=== PATIENT | female | born 1985 | race Caucasian/White ===

== ENCOUNTER → 2016-08-16 | Outpatient (CLI) | payer OTHER | LOC: COL.RAD 10:17 | DX: R10.12 Left upper quadrant pain (principal); G89.29 Other chronic pain ==

== ENCOUNTER → 2017-05-15 | Outpatient (CLI) | payer BC | LOC: COL.RAD 09:03 | DX: R10.31 Right lower quadrant pain (principal); R11.2 Nausea with vomiting, unspecified; R19.7 Diarrhea, unspecified; R23.2 Flushing | CPT/HCPCS: A9572 ==

== ENCOUNTER → 2017-12-13 | Outpatient (CLI) | payer BC | LOC: COL.RAD 08:04 | DX: E05.90 Thyrotoxicosis, unspecified without thyrotoxic crisis or storm (principal) ==

== ENCOUNTER → 2017-12-26 | Outpatient (CLI) | payer BC | LOC: COL.RAD 12-25 09:12 | DX: E05.90 Thyrotoxicosis, unspecified without thyrotoxic crisis or storm (principal) | CPT/HCPCS: A9516 ==

== ENCOUNTER → 2018-07-16 | Outpatient (CLI) | payer BC | LOC: COL.RAD 13:29 | DX: E05.90 Thyrotoxicosis, unspecified without thyrotoxic crisis or storm (principal) | CPT/HCPCS: A9516 ==

== ENCOUNTER → 2018-07-26 | Outpatient (CLI) | payer BC | LOC: COL.RAD 13:08 | DX: E05.90 Thyrotoxicosis, unspecified without thyrotoxic crisis or storm (principal) | CPT/HCPCS: A9517 ==

== ENCOUNTER → 2019-01-06 | Outpatient (CLI) | payer OTHER ==
[~2019-01-06] MED LIST: ADVIL200 MG PO; BENADRYL25 M2 PO; EPIPEN 2-PAK1 MG/ML IM; PREDNISONE 5MG5 MG PO; PROAIR HFA0.09 MG/AC IH; SANDOSTATI100 MCG/ML SQ; SANDOSTATIN LAR30 M1 IM; SYNTHROID0.1 MG/TAB PO; ZANTAC 7575 MG PO
== END ==
LOC: COL.PUL 07:49
DX: Z02.71 Encounter for disability determination (principal)

== ENCOUNTER 2019-03-04 13:30 | Outpatient (RCR) | payer OTHER ==
[2018-12-16 13:55] VITALS: BP 114/70; PULSE 78; TEMP 98.5
[2019-01-07 13:39] VITALS: BP 102/70; PULSE 83; TEMP 98.1
--- NOTE | 2019-01-07 16:09 | NUR ---
Pt rekha xolair well. Pt observed for 2 hours post injection. Pt discharged per ambulation with .
[2019-01-16 13:13] VITALS: BP 119/87; PULSE 77; TEMP 97.9
[2019-02-04 16:38] VITALS: BP 120/68; PULSE 66; TEMP 98
[2019-02-18 14:08] VITALS: BP 109/75; PULSE 87; TEMP 98
[~2019-03-04] VITALS: Ht 167.6 cm; Wt 72.5 kg
[2019-03-04 13:43] VITALS: BP 116/61; PULSE 83; TEMP 98.4
[2019-04-15] MEDS ORDERED: XOLAIR150 MG/1 M SQ (14:16)
== END 2019-03-16 | disposition home or self-care (01) ==
LOC: EUO
DX: D89.42 Idiopathic mast cell activation syndrome (principal); E34.0 Carcinoid syndrome; J45.40 Moderate persistent asthma, uncomplicated; R76.8 Other specified abnormal immunological findings in serum; Z79.899 Other long term (current) drug therapy

== ENCOUNTER 2019-06-10 13:00 | Outpatient (RCR) | payer OTHER ==
[2019-03-18 14:10] VITALS: BP 101/71; PULSE 78; TEMP 98.3
[2019-04-01 13:54] VITALS: BP 115/72; PULSE 74; TEMP 98.3
[2019-04-15 14:17] VITALS: BP 108/73; PULSE 76; TEMP 98
[2019-04-29 11:11] VITALS: BP 115/70; PULSE 85; TEMP 98.3
[2019-05-14 14:34] VITALS: BP 11/77; PULSE 72; TEMP 98.7
[2019-05-27 14:27] VITALS: BP 105/71; PULSE 76; TEMP 98
[2019-06-03 12:30] VITALS: BP 103/68; PULSE 72; TEMP 98.3
[2019-06-03 13:45] VITALS: BP 99/53; PULSE 77; TEMP 98.2
[2019-06-03 15:09] VITALS: BP 99/54; PULSE 73
[~2019-06-10] VITALS: Ht 170.2 cm; Wt 68.4 kg
[~2019-06-10 13:00] MED LIST changes: +XOLAIR150 MG/1 M SQ
[2019-06-10 14:35] VITALS: BP 111/86; PULSE 73; TEMP 98.6
[2019-06-10] MEDS ORDERED: PROMETHAZINE12.5 M5 PO (16:29)
== END 2019-06-16 | disposition still patient (30) ==
LOC: EUO
DX: E34.0 Carcinoid syndrome (principal); D89.42 Idiopathic mast cell activation syndrome; J45.40 Moderate persistent asthma, uncomplicated; R76.8 Other specified abnormal immunological findings in serum; Z79.899 Other long term (current) drug therapy
CPT/HCPCS: J2357; J7030

== ENCOUNTER → 2019-06-17 | Outpatient (CLI) | payer OTHER ==
[~2019-06-17] MED LIST changes: +PROMETHAZINE12.5 M5 PO
== END ==
LOC: COL.RAD 08:03
DX: K80.20 Calculus of gallbladder without cholecystitis without obstruction (principal); R11.15 Cyclical vomiting syndrome unrelated to migraine; N28.9 Disorder of kidney and ureter, unspecified

== ENCOUNTER 2019-06-30 12:06 | Day surgery (SDC) | payer OTHER ==
[2019-06-30] VITALS (9 sets, daily range): BP systolic 102–113; BP diastolic 54–80; PULSE 77–101; TEMP 98.1–98.3
[~2019-06-30] VITALS: Ht 170.2 cm; Wt 68.3 kg
--- NOTE | 2019-06-30 13:14 | NUR ---
TO RM AT 1225- CALL IN REACH AND MOTHER AT BEDSIDE.
--- NOTE | 2019-06-30 13:51 | NUR ---
PATIENT MOTHER CAME OUT AND STATED SHE WAS HAVING A REACTION. CHEEKS PINK AND STARTED RASH, VOICE SCRATCHY. THEY ASK IF SHE COULD TAKE ONE OF HER OWN OCTREOTIDE INJ 100MCG. OMAIRA MURRAY CALLED, OK TO GIVE HER OWN INJ. AND TO GIVE BENADRYL 25MG IV. THESE MEDICATIONS GIVEN AND PATIENT STATED SHE WAS FEELING BETTER AND VOICE MORE CLEAR. AMBULATED TO BATHROOM WITH ASSIST AND TOLERATED WELL.
--- NOTE | 2019-06-30 14:04 | NUR ---
MOTHER VERBALIZED CONCERN OF HAVING SURGERY AND REACTIOINS SHE HAS TO THE ENVIRONMENT. DR CRESPO TALKED WITH PATIENT AND HER FAMILY. OMAIRA MURRAY TALKED WITH PATIENT AND HER FAMILY. PRACTICE PERFORMANCE MANAGER CALLED AND UPDATED ON PATIENT MAST CELL ACTIVATION SYNDROME CARCINOID SYNDROME.
--- NOTE | 2019-06-30 16:40 | NUR ---
PATIENT IS ORIENTED BUT VERY DROWSY POST OP. 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 NURSING DISCUSSED THESE RARE SYNDROMES WITH MOTHER AND AT BEDSIDE. PATIENT'S FAMILY REPORTS SHE WAS DIAGNOSED WITH MAST CELL SYNDROME IN 2013 AND CARCINOID SYNDROME IN 2016. PATIENT REPORTIDLY HAS ANYWHERE FROM 5-6 SERIOUS ALLERGIC REACTIONS DAILY. THERE IS A WIDE RANGE OF CAUSATIVE FACTORS SUCH FOODS, SMELLS, AND OTHER ENVIRONMENTAL THINGS. HOSPITALIST CONSULTED FOR MANAGMENT OF THESE CONDITIONS HOWEVER, PATIENT HAS BEEN MANAGING HER SYMPTOMS ALONG WITH HER FAMILY FOR YEARS. ABDOMINAL LAP SITES X4, CD&I WITH LU SET. ABDOMIN IS FLAT, SOFT AND WITH POSITIVE BOWL SOUNDS. NO C/O N/V AT THIS TIME. IV FLUIDS INFUSING INTO LEFT WRIST. ICE CHIPS AT BEDSIDE. FAMILY BRINGING IN FILTERED WATER FOR HER. HEAD TO TOE ASSESSMENT WNL. NO OTHER NEEDS AT THIS TIME. CALL LIGHT IN REACH. FAMILY ALL AT BEDSIDE. PATIENT SLEEPING
--- NOTE | 2019-06-30 17:45 | NUR ---
PATIENT C/O PAIN IN ABD LAP SITES BUT ALSO IN HER RIGHT POSTERIOR BACK. GAVE PRN ROXICODONE, ONE TAB. PATIENT ALSO GIVEN K-PAD FOR BACK TO HELP RELIEVE BACK MUSCLE PAIN. FAMILY AT BEDSIDE. PATIENT ENCOURAGED TO LET NURSING STAFF KNOW IF SHE NEEDS A MEDICATION FOR ALLERGIC REACTION DUE TO HER HX OF MAST CELL ACTIVATION SYNDROME. PATIENT AND FAMILY VERY WELL EDUCATED ABOUT REACTIONS AND WHAT TO DO. NO CONCERNS AT THIS TIME. PATIENT RESTING IN BED.
--- NOTE | 2019-06-30 18:15 | NUR ---
HOSPITALIST PHYSICIAN NOW AT BEDSIDE.
--- NOTE | 2019-06-30 18:58 | NUR ---
PATIENT'S MOTHER CAME OUT OF ROOM AND ASKED FOR NURSING. PATIENT REPORTS SHE IS HAVING A REACTION. GAVE PRN INJ. AFTER 5 MINUTES PATIENT STILL REPORTS FEELING FLUSH AND LUMP IN HER THROAT. GAVE PRN BENADRYL AND PREDNISONE. COOL CLOTH APPLIED TO HEAD. PATIENT REPORTS THIS IS HER NORMAL TREATMENT METHOD AT HOME. HOSPITALIST AT BEDSIDE. PATIENT REPORTS SYMPTOMS ARE IMPROVING. FAMILY AT BEDSIDE.
[2019-07-01] VITALS: BP 103/63; PULSE 72; TEMP 98.1
--- NOTE | 2019-07-01 00:43 | NUR ---
Upon arrival for my shift, patient was having a reaction per day shift as charted in previous note. Patient settled after medication was given. Patient alerted staff that she would most likely have a reaction after eating and her was bringing her some food from home. Patient called about 2114 and stated she was having a reaction. Upon entering the room patient noted to be flushed in the face, slightly puffy in her cheeks, and her lips slightly swollen. Medication including octreotide, benadryl, and prednisone were given. Cool wash cloth to forehead. This nurse stayed with patient until the reaction appeared to subside. Assisted patient to the restroom with 1 assist. Complains of pain to right side and back. Motrin given for this and patient states this is effective. Patient states her primary care physician ordered epinepherine for severe allergic reactions, when no other medication has helped because this can cause the opposite effect in her body and send her body into a worse reaction. Medication not given. IV Solumedrol 40mg q8 hours ordered by Dr. Becerril for if 2 doses of prednisone isn't effective. Patient and family notified of this and do not want this given unless an absolute emergency d/t never taking it before. Patient's brought in an air purifier. Patient has been resting with no reactions since 2109. Will continue to monitor patient.
[2019-07-01 03:52] VITALS: BP 86/54; PULSE 65; TEMP 97.8
--- NOTE | 2019-07-01 04:12 | NUR ---
Patient blood pressure noted to be 86/[address] Michael notified and ordered 1L NS bolus over 1 hour and to monitor blood pressure. Will continue to monitor patient.
[2019-07-01 05:12] VITALS: BP 95/57; PULSE 64
[2019-07-01 07:19] VITALS: BP 89/48; PULSE 69; TEMP 98.2
--- NOTE | 2019-07-01 08:00 | NUR ---
SEE MORNING SHIFT ASSESSMENT.
--- NOTE | 2019-07-01 08:58 | NUR ---
EFFIE met with the patient, her (Дмитрий, ph#[phone]), and mother (Marleny, ph#[phone]) to discuss discharge plan. The patient lives in [place] with her . She reports needing assistance with ADLs and does not have any DME. She states that her helps her with bathing and using the restroom. The patient's PCP is Dr. Malachi Moss and she receives her medications at [facility]. She reports no difficulties obtaining her meds. The patient does not have advanced directives in EMR, but she states that she does have them completed. She states that her mother, Marleny, is her DPOA-HC. The patient plans to return home with her upon discharge. No additional needs at this time.
[2019-07-01 09:05] LABS: BASO % 0.1 % (0.0-2.0); GRAN # 5.8 (1.4-6.5); GRAN % 76.9 % (42.2-75.2); HEMOGLOBIN 10.4 g/dl (12.5-16.0); LYMPH # 1.2 (1.2-3.4); LYMPH % 15.9 % (20.0-51.0); MEAN CELL VOLUME 91 fl (80.0-100.0); MEAN CORPUSCULAR HEMOGLOBIN 31 pg (27.0-31.0); MEAN CORPUSCULAR HGB CONC 34 g/dl (33.0-37.0); MEAN PLATELET VOLUME 11.5 fl (7.4-10.4); MONO # 0.5 (0.1-0.6); PLATELET COUNT 165 K/mm3 (130-400); RED BLOOD COUNT 3.39 M/mm3 (4.10-5.30); REDCELL DISTRIBUTION WIDTH-CV 11.7 % (11.5-14.5)
--- NOTE | 2019-07-01 09:12 | NUR ---
PATIENT COMPLAINS ON LIP SWELLING, NASAL PRESSURE AND AN INCREASE IN THE RASPINESS OF HER VOICE AFTER RECEIVING OCTREOTIDE. PATIENT REQUESTED AND GIVEN PRN PO BENADRYL 50 MG. NO OTHER NEEDS AT THIS TIME.
--- NOTE | 2019-07-01 09:26 | NUR ---
PATIENT CALLED OUT STATING THAT SHE DOES NOT FEEL THAT THE BENADRYL IS QUITE WORKING. PATIENT GIVEN PRN DOSE OF PREDNISONE. WILL CONTINUE TO MONITOR.
[2019-07-01 09:49] LABS: ALBUMIN 3.2 gm/dL (3.5-5.0); BILIRUBIN,TOTAL 0.7 mg/dL (0.0-1.0); CALCIUM 8.2 mg/dL (8.4-10.2); CREATININE, serum 0.7 (0.52-1.25); POTASSIUM 3.9 mmol/L (3.4-5.0)
[2019-07-01 10:37] VITALS: BP 102/75; PULSE 66; TEMP 97.3
--- NOTE | 2019-07-01 12:54 | NUR ---
PATIENT CALLED OUT AND REQUESTED SQ INJECTION FOR THROAT RASPINESS AFTER EATING PEACHES. WILL CONTINUE TO [facility]. NO OTHER NEEDS AT THIS TIME.
--- NOTE | 2019-07-01 14:45 | NUR ---
DISCHARGE INSTRUCTIONS REVIEWED WITH PATIENT AND FAMILY. QUESTIONS SOUGHT AND ANSWERED. PATIENTS INT DISCONTINUED PER PENDING DISCHARGE. TIP INTACT. PATIENT TOLERATED WELL. PATIENT PERSONAL BELONGINGS GATHERED. PATIENT TAKEN TO PERSONAL VEHICLE VIA WHEELCHAIR BY SURGICAL STAFF. PATIENT DISCHARGED.
== END 2019-07-01 14:45 | disposition home or self-care (01) ==
LOC: SURG 12:06 → SDCO 12:06 → SURG 17:00 → SDCO 07-01 14:45
PROVIDERS: Physician Assistant
DX: K80.10 Calculus of gallbladder with chronic cholecystitis without obstruction (principal); D89.40 Mast cell activation, unspecified; E34.0 Carcinoid syndrome; E05.00 Thyrotoxicosis with diffuse goiter without thyrotoxic crisis or storm; J45.909 Unspecified asthma, uncomplicated; G43.909 Migraine, unspecified, not intractable, without status migrainosus; E03.9 Hypothyroidism, unspecified; Z79.52 Long term (current) use of systemic steroids; Z88.2 Allergy status to sulfonamides; Z80.49 Family history of malignant neoplasm of other genital organs
CPT/HCPCS: OP; 99222; 99231-AI; J0690; J1200; J1720; J2354; J2405; J2550; J2704; J3010; J7030; J7040; J7120; J7512

== ENCOUNTER 2019-08-05 14:00 | Outpatient (RCR) | payer OTHER ==
[2019-07-08 14:00] VITALS: BP 110/83; PULSE 105; TEMP 97.7
[~2019-08-05] VITALS: Ht 170.2 cm; Wt 66.5 kg
[2019-08-05 15:13] VITALS: BP 116/74; PULSE 66; TEMP 97.7
== END 2019-08-05 15:15 | disposition home or self-care (01) ==
LOC: EUO 14:00
DX: E34.0 Carcinoid syndrome (principal); D89.42 Idiopathic mast cell activation syndrome; J45.40 Moderate persistent asthma, uncomplicated; R76.8 Other specified abnormal immunological findings in serum; Z79.899 Other long term (current) drug therapy

== ENCOUNTER 2020-09-14 15:05 | Outpatient (CLI) | payer MEDICARE, OTHER ==
[~2020-09-14] VITALS: Ht 170.2 cm; Wt 69.2 kg
[~2020-09-14 15:05] MED LIST changes: +CROLOM 10 ML10 ML PO; +SYNTHROID0.088 MG/T PO; -SYNTHROID0.1 MG/TAB PO
[2020-09-14 15:55] VITALS: BP 115/74; PULSE 71; TEMP 98.1
[2020-09-14] MEDS ORDERED: XOLAIR150 MG/1 M SQ (16:13)
== END 2020-09-14 16:14 | disposition home or self-care (01) ==
LOC: EUO 15:05
DX: E34.0 Carcinoid syndrome (principal); D89.42 Idiopathic mast cell activation syndrome; J45.40 Moderate persistent asthma, uncomplicated; Z79.899 Other long term (current) drug therapy
CPT/HCPCS: J2353

== ENCOUNTER 2020-09-28 14:52 | Outpatient (CLI) | payer MEDICARE, OTHER ==
[~2020-09-28] VITALS: Ht 170.2 cm; Wt 68.9 kg
[2020-09-28 15:14] VITALS: BP 107/90; PULSE 84; TEMP 98.1
== END 2020-09-28 15:52 | disposition home or self-care (01) ==
LOC: EUO 14:52
DX: J45.40 Moderate persistent asthma, uncomplicated (principal); Z79.899 Other long term (current) drug therapy
CPT/HCPCS: J2357

== ENCOUNTER 2020-10-12 14:50 | Outpatient (RCR) | payer MEDICARE, OTHER ==
[2020-10-12 15:55] VITALS: BP 105/74; PULSE 72; TEMP 98.2
== END 2020-10-12 16:13 | disposition home or self-care (01) ==
LOC: EUO 14:50
DX: J45.40 Moderate persistent asthma, uncomplicated (principal); E34.0 Carcinoid syndrome; D89.42 Idiopathic mast cell activation syndrome
CPT/HCPCS: J2353

== ENCOUNTER 2020-10-26 14:45 | Outpatient (CLI) | payer MEDICARE, OTHER ==
[~2020-10-26] VITALS: Ht 170.2 cm; Wt 70.0 kg
[2020-10-26 15:27] VITALS: BP 126/83; PULSE 77; TEMP 98
== END 2020-10-26 16:04 | disposition home or self-care (01) ==
LOC: EUO 14:45
DX: J45.40 Moderate persistent asthma, uncomplicated (principal); Z79.899 Other long term (current) drug therapy
CPT/HCPCS: J2357

== ENCOUNTER 2020-11-09 14:52 | Outpatient (RCR) | payer MEDICARE, OTHER ==
[~2020-11-09] VITALS: Ht 170.2 cm; Wt 69.0 kg
[2020-11-09 16:04] VITALS: BP 140/71; PULSE 81; TEMP 98.7
== END 2020-11-10 17:23 | disposition home or self-care (01) ==
LOC: EUO 14:52
DX: D89.42 Idiopathic mast cell activation syndrome (principal); E34.0 Carcinoid syndrome
CPT/HCPCS: J2353

== ENCOUNTER 2020-11-23 14:42 | Outpatient (CLI) | payer MEDICARE, OTHER ==
[~2020-11-23] VITALS: Ht 170.2 cm; Wt 69.0 kg
[2020-11-23 15:18] VITALS: BP 112/79; PULSE 75; TEMP 98.2
== END 2020-11-23 15:30 | disposition home or self-care (01) ==
LOC: EUO 14:42
DX: J45.40 Moderate persistent asthma, uncomplicated (principal); Z79.899 Other long term (current) drug therapy
CPT/HCPCS: J2357

== ENCOUNTER 2020-12-02 18:34 | Emergency (ER) | payer MEDICARE, OTHER ==
[~2020-12-02] VITALS: Ht 170.2 cm; Wt 68.2 kg
[2020-12-02 19:29] LABS: BASO % 0.5 % (0.0-2.0); EOS # 0.1 (0.0-0.7); EOS % 0.8 % (0-4.0); GRAN # 3.9 (1.4-6.5); GRAN % 53.3 % (42.2-75.2); HEMOGLOBIN 12.5 g/dl (12.5-16.0); LYMPH # 2.8 (1.2-3.4); LYMPH % 37.5 % (20.0-51.0); MEAN CELL VOLUME 88 fl (80.0-100.0); MEAN CORPUSCULAR HEMOGLOBIN 30 pg (27.0-31.0); MEAN CORPUSCULAR HGB CONC 34 g/dl (33.0-37.0); MEAN PLATELET VOLUME 11.5 fl (7.4-10.4); MONO # 0.6 (0.1-0.6); MONO % 7.8 % (1.7-9.3); PLATELET COUNT 228 K/mm3 (130-400); RED BLOOD COUNT 4.21 M/mm3 (4.10-5.30); REDCELL DISTRIBUTION WIDTH-CV 11.8 % (11.5-14.5)
[2020-12-02 19:40] LABS: CALCIUM 9.4 mg/dL (8.4-10.2); CREATININE, serum 0.75 (0.52-1.25); POTASSIUM 3.3 mmol/L (3.4-5.0)
[2020-12-02 20:40] VITALS: BP 114/71; PULSE 84; TEMP 97.9
== END 2020-12-02 20:40 | disposition home or self-care (01) ==
LOC: COL.ER 18:34
PROVIDERS: Physician Assistant
DX: D89.40 Mast cell activation, unspecified (principal); E03.9 Hypothyroidism, unspecified; Z79.890 Hormone replacement therapy; Z85.030 Personal history of malignant carcinoid tumor of large intestine
CPT/HCPCS: J2930; J7030

== ENCOUNTER 2020-12-07 14:57 | Outpatient (CLI) | payer MEDICARE, OTHER ==
[~2020-12-07] VITALS: Ht 170.2 cm; Wt 69.8 kg
[2020-12-07 16:21] VITALS: BP 125/84; PULSE 72; TEMP 98.9
== END 2020-12-07 16:24 | disposition home or self-care (01) ==
LOC: EUO 14:57 → EDSTATUS 15:00 → EUO 16:24
DX: E34.0 Carcinoid syndrome (principal); D89.42 Idiopathic mast cell activation syndrome; Z79.899 Other long term (current) drug therapy
CPT/HCPCS: J2353

== ENCOUNTER 2020-12-21 14:52 | Outpatient (CLI) | payer MEDICARE, OTHER ==
[~2020-12-21] VITALS: Ht 170.2 cm; Wt 69.3 kg
[2020-12-21 15:16] VITALS: BP 106/69; PULSE 80; TEMP 98.7
[2020-12-21] MEDS ORDERED: METHOTREXA2.5 MG/TAB PO (15:29)
== END 2020-12-22 12:00 ==
LOC: EUO 14:52
DX: J45.40 Moderate persistent asthma, uncomplicated (principal)
CPT/HCPCS: J2357

== ENCOUNTER 2021-01-04 15:46 | Outpatient (CLI) | payer MEDICARE, OTHER ==
[~2021-01-04] VITALS: Ht 170.2 cm; Wt 69.7 kg
[2021-01-04 15:20] VITALS: BP 11/70; PULSE 90; TEMP 97.9
[~2021-01-04 15:46] MED LIST changes: +METHOTREXA2.5 MG/TAB PO
== END 2021-01-04 17:03 | disposition home or self-care (01) ==
LOC: EUO 15:46
DX: E34.0 Carcinoid syndrome (principal); D89.42 Idiopathic mast cell activation syndrome; Z79.899 Other long term (current) drug therapy
CPT/HCPCS: J2353

== ENCOUNTER 2021-01-18 14:56 | Outpatient (CLI) | payer MEDICARE, OTHER ==
[~2021-01-18] VITALS: Ht 170.2 cm; Wt 70.1 kg
[2021-01-18 15:36] VITALS: BP 106/70; PULSE 73; TEMP 98.6
== END 2021-01-18 19:02 | disposition home or self-care (01) ==
LOC: EUO 14:56
DX: J45.40 Moderate persistent asthma, uncomplicated (principal)
CPT/HCPCS: J2357

== ENCOUNTER 2021-02-01 14:51 | Outpatient (RCR) | payer MEDICARE, OTHER ==
[~2021-02-01] VITALS: Ht 170.2 cm; Wt 71.7 kg
[2021-02-01 15:30] VITALS: BP 100/67; PULSE 89; TEMP 97.9
== END 2021-03-01 15:14 | disposition home or self-care (01) ==
LOC: EUO 14:51
DX: E34.0 Carcinoid syndrome (principal); D89.42 Idiopathic mast cell activation syndrome; Z79.899 Other long term (current) drug therapy
CPT/HCPCS: J2353

== ENCOUNTER 2021-02-15 14:43 | Outpatient (CLI) | payer MEDICARE, OTHER ==
[~2021-02-15] VITALS: Ht 170.2 cm; Wt 71.9 kg
[2021-02-15 15:01] VITALS: BP 108/75; PULSE 71; TEMP 98.6
== END 2021-02-15 16:17 | disposition home or self-care (01) ==
LOC: EUO 14:43
DX: J45.40 Moderate persistent asthma, uncomplicated (principal)
CPT/HCPCS: J2357

== ENCOUNTER 2021-03-01 14:52 | Outpatient (CLI) | payer MEDICARE, OTHER ==
[~2021-03-01] VITALS: Ht 170.2 cm; Wt 69.8 kg
== END 2021-03-01 16:00 | disposition home or self-care (01) ==
LOC: EUO 14:52
DX: E34.0 Carcinoid syndrome (principal); D89.42 Idiopathic mast cell activation syndrome; Z79.899 Other long term (current) drug therapy
CPT/HCPCS: J2353

== ENCOUNTER 2021-03-15 15:37 | Outpatient (CLI) | payer MEDICARE, OTHER ==
[~2021-03-15] VITALS: Ht 170.2 cm; Wt 61.0 kg
[2021-03-15 15:55] VITALS: BP 91/61; PULSE 76; TEMP 98.7
== END 2021-03-15 16:00 | disposition home or self-care (01) ==
LOC: EUO 15:37
DX: J45.40 Moderate persistent asthma, uncomplicated (principal); Z79.899 Other long term (current) drug therapy
CPT/HCPCS: J2357

== ENCOUNTER 2021-03-29 14:51 | Outpatient (CLI) | payer MEDICARE, OTHER ==
[~2021-03-29] VITALS: Ht 170.2 cm; Wt 69.9 kg
[2021-03-29 15:36] VITALS: BP 116/74; PULSE 86; TEMP 98.1
== END 2021-03-29 17:23 | disposition home or self-care (01) ==
LOC: EUO 14:51
DX: E34.0 Carcinoid syndrome (principal); D89.42 Idiopathic mast cell activation syndrome
CPT/HCPCS: J2353

== ENCOUNTER 2021-04-12 14:48 | Outpatient (CLI) | payer MEDICARE, OTHER ==
[2021-04-12 15:09] VITALS: BP 114/73; PULSE 84; TEMP 98.7
== END 2021-04-12 15:10 | disposition home or self-care (01) ==
LOC: EUO 14:48
DX: J45.40 Moderate persistent asthma, uncomplicated (principal)
CPT/HCPCS: J2357

== ENCOUNTER 2021-04-26 14:45 | Outpatient (RCR) | payer MEDICARE, OTHER ==
[~2021-04-26] VITALS: Ht 170.2 cm; Wt 70.6 kg
[2021-04-26 16:49] VITALS: BP 105/85; PULSE 94; TEMP 98.6
[2021-04-26] MEDS ORDERED: TREXALL5 MG PO (16:52)
== END 2021-04-26 16:57 | disposition home or self-care (01) ==
LOC: EUO 14:45
DX: E34.0 Carcinoid syndrome (principal); D89.42 Idiopathic mast cell activation syndrome; Z79.899 Other long term (current) drug therapy
CPT/HCPCS: J2353

== ENCOUNTER 2021-05-10 12:43 | Outpatient (CLI) | payer MEDICARE, OTHER ==
[~2021-05-10] VITALS: Ht 170.2 cm; Wt 70.5 kg
[~2021-05-10 12:43] MED LIST changes: +TREXALL5 MG PO
[2021-05-10 13:15] VITALS: BP 105/71; PULSE 76; TEMP 98.6
== END 2021-05-10 13:28 | disposition home or self-care (01) ==
LOC: EUO 12:43
DX: J45.40 Moderate persistent asthma, uncomplicated (principal)
CPT/HCPCS: J2357

== ENCOUNTER 2021-05-24 14:48 | Outpatient (RCR) | payer MEDICARE, OTHER ==
[2021-05-24 15:43] VITALS: BP 112/67; PULSE 81; TEMP 98.4
== END 2021-05-24 16:05 ==
LOC: EUO 14:48
DX: E34.0 Carcinoid syndrome (principal); D89.42 Idiopathic mast cell activation syndrome
CPT/HCPCS: J2353

== ENCOUNTER 2021-06-07 14:45 | Outpatient (CLI) | payer MEDICARE, OTHER ==
[~2021-06-07] VITALS: Ht 170.2 cm; Wt 71.0 kg
[2021-06-07 15:17] VITALS: BP 116/80; PULSE 68; TEMP 98.5
== END 2021-06-07 15:39 ==
LOC: EUO 14:45
DX: J45.40 Moderate persistent asthma, uncomplicated (principal)
CPT/HCPCS: J2357

== ENCOUNTER 2021-06-22 14:53 | Outpatient (RCR) | payer MEDICARE, OTHER ==
[~2021-06-22] VITALS: Ht 170.2 cm; Wt 70.3 kg
[~2021-06-22 14:53] MED LIST changes: +REDITREX 225 MG/1 ML SQ; -TREXALL5 MG PO
[2021-06-22 15:20] VITALS: BP 101/71; PULSE 79
== END 2021-06-22 16:00 | disposition home or self-care (01) ==
LOC: EUO 14:53
DX: E34.0 Carcinoid syndrome (principal); D89.42 Idiopathic mast cell activation syndrome
CPT/HCPCS: J2353

== ENCOUNTER 2021-07-05 14:48 | Outpatient (CLI) | payer MEDICARE, OTHER ==
[~2021-07-05] VITALS: Ht 170.2 cm; Wt 70.2 kg
[2021-07-05 15:15] VITALS: BP 93/65; PULSE 52; TEMP 98.3
== END 2021-07-05 15:19 ==
LOC: EUO 14:48
DX: J45.40 Moderate persistent asthma, uncomplicated (principal)
CPT/HCPCS: J2357

== ENCOUNTER 2021-07-19 14:54 | Outpatient (RCR) | payer MEDICARE, OTHER ==
[~2021-07-19] VITALS: Ht 170.2 cm; Wt 71.1 kg
[2021-07-19 15:19] VITALS: BP 108/76; PULSE 87; TEMP 98.4
== END 2021-07-19 16:40 ==
LOC: EUO 14:54
DX: D89.42 Idiopathic mast cell activation syndrome (principal); E34.0 Carcinoid syndrome
CPT/HCPCS: J2353

== ENCOUNTER 2021-08-02 14:49 | Outpatient (CLI) | payer MEDICARE, OTHER ==
[~2021-08-02] VITALS: Ht 170.2 cm; Wt 71.5 kg
[2021-08-02 15:34] VITALS: BP 114/86; PULSE 92; TEMP 98.5
== END 2021-08-02 16:03 | disposition home or self-care (01) ==
LOC: EUO 14:49
DX: J45.40 Moderate persistent asthma, uncomplicated (principal); Z79.899 Other long term (current) drug therapy
CPT/HCPCS: J2357

== ENCOUNTER 2021-08-16 14:44 | Outpatient (RCR) | payer MEDICARE, OTHER ==
[~2021-08-16] VITALS: Ht 170.2 cm; Wt 72.7 kg
[2021-08-16 15:37] VITALS: BP 112/80; PULSE 78; TEMP 98.5
== END 2021-08-16 16:57 | disposition home or self-care (01) ==
LOC: EUO 14:44
DX: E34.0 Carcinoid syndrome (principal); D89.42 Idiopathic mast cell activation syndrome
CPT/HCPCS: J2353

== ENCOUNTER 2021-08-30 14:43 | Outpatient (CLI) | payer MEDICARE, OTHER ==
[~2021-08-30] VITALS: Ht 170.2 cm; Wt 64.0 kg
[2021-08-30 15:15] VITALS: BP 100/65; PULSE 81; TEMP 98
== END 2021-08-30 15:30 | disposition home or self-care (01) ==
LOC: EUO 14:43
DX: J45.40 Moderate persistent asthma, uncomplicated (principal)
CPT/HCPCS: J2357

== ENCOUNTER 2021-09-13 14:31 | Outpatient (RCR) | payer MEDICARE, OTHER ==
[~2021-09-13] VITALS: Ht 170.2 cm; Wt 71.3 kg
[2021-09-13 15:18] VITALS: BP 107/74; PULSE 83
== END 2021-09-13 15:19 ==
LOC: EUO 14:31
DX: E34.0 Carcinoid syndrome (principal); D89.42 Idiopathic mast cell activation syndrome
CPT/HCPCS: J2353

== ENCOUNTER 2021-09-27 14:45 | Outpatient (CLI) | payer MEDICARE, OTHER ==
[~2021-09-27] VITALS: Ht 170.2 cm; Wt 70.0 kg
[2021-09-27 15:25] VITALS: BP 101/67; PULSE 77; TEMP 97.7
== END 2021-09-27 16:01 | disposition home or self-care (01) ==
LOC: EUO 14:45
DX: J45.40 Moderate persistent asthma, uncomplicated (principal)
CPT/HCPCS: J2357

== ENCOUNTER 2021-10-11 14:49 | Outpatient (CLI) | payer MEDICARE, OTHER ==
[~2021-10-11] VITALS: Ht 170.2 cm; Wt 71.0 kg
[~2021-10-11 14:49] MED LIST changes: -SYNTHROID0.088 MG/T PO; +SYNTHROID0.1 MG/TAB PO
[2021-10-11 15:36] VITALS: BP 113/77; PULSE 78; TEMP 98.2
== END 2021-10-11 15:45 ==
LOC: EUO 14:49
DX: E34.0 Carcinoid syndrome (principal); D89.42 Idiopathic mast cell activation syndrome
CPT/HCPCS: J2353

== ENCOUNTER 2021-10-25 14:52 | Outpatient (CLI) | payer MEDICARE, OTHER ==
[~2021-10-25] VITALS: Ht 170.2 cm; Wt 70.3 kg
[2021-10-25 15:46] VITALS: BP 102/66; PULSE 68; TEMP 98.4
== END 2021-10-25 15:49 | disposition home or self-care (01) ==
LOC: EUO 14:52
DX: J45.40 Moderate persistent asthma, uncomplicated (principal)
CPT/HCPCS: J2357

== ENCOUNTER 2021-11-08 14:45 | Outpatient (RCR) | payer MEDICARE, OTHER ==
[~2021-11-08] VITALS: Ht 170.2 cm; Wt 71.5 kg
[2021-11-08] MEDS ORDERED: ZYRTEC 10MG10 MG PO (15:19)
[2021-11-08 15:33] VITALS: BP 131/89; PULSE 71; TEMP 98.3
== END 2021-11-08 15:49 ==
LOC: EUO 14:45
DX: E34.0 Carcinoid syndrome (principal); D89.42 Idiopathic mast cell activation syndrome
CPT/HCPCS: J2353

== ENCOUNTER 2021-11-22 14:38 | Outpatient (CLI) | payer MEDICARE, OTHER ==
[~2021-11-22] VITALS: Ht 170.2 cm; Wt 70.8 kg
[~2021-11-22 14:38] MED LIST changes: +ZYRTEC 10MG10 MG PO
[2021-11-22 15:06] VITALS: BP 103/66; PULSE 66; TEMP 98.5
== END 2021-11-22 15:10 ==
LOC: EUO 14:38
DX: J45.40 Moderate persistent asthma, uncomplicated (principal)
CPT/HCPCS: J2357

== ENCOUNTER 2021-12-06 14:47 | Outpatient (CLI) | payer MEDICARE, OTHER ==
[~2021-12-06] VITALS: Ht 170.2 cm; Wt 71.4 kg
[2021-12-06 16:18] VITALS: BP 113/74; PULSE 68; TEMP 98.2
== END 2021-12-06 16:38 | disposition home or self-care (01) ==
LOC: EUO 14:47
DX: J45.40 Moderate persistent asthma, uncomplicated (principal); E34.0 Carcinoid syndrome; D89.42 Idiopathic mast cell activation syndrome
CPT/HCPCS: J2353; J2357

== ENCOUNTER 2021-12-20 14:44 | Outpatient (CLI) | payer MEDICARE, OTHER ==
[~2021-12-20] VITALS: Ht 170.2 cm; Wt 72.6 kg
[2021-12-20 15:32] VITALS: BP 100/69; PULSE 89; TEMP 99
[2021-12-20] MEDS ORDERED: KLONOPIN 0.5MG0.5 MG PO (15:43)
== END 2021-12-20 15:48 ==
LOC: EUO 14:44
DX: J45.40 Moderate persistent asthma, uncomplicated (principal)
CPT/HCPCS: J2357

== ENCOUNTER 2022-01-03 14:50 | Outpatient (CLI) | payer MEDICARE, OTHER ==
[~2022-01-03] VITALS: Ht 170.2 cm; Wt 73.2 kg
[~2022-01-03 14:50] MED LIST changes: +KLONOPIN 0.5MG0.5 MG PO
[2022-01-03 15:56] VITALS: BP 126/86; PULSE 95; TEMP 98.5
== END 2022-01-03 17:00 ==
LOC: EUO 14:50
DX: J45.40 Moderate persistent asthma, uncomplicated (principal); Z79.899 Other long term (current) drug therapy
CPT/HCPCS: J2353; J2357

== ENCOUNTER 2022-01-16 14:45 | Outpatient (CLI) | payer MEDICARE, OTHER ==
[~2022-01-16] VITALS: Ht 170.2 cm; Wt 74.9 kg
[2022-01-16 15:04] VITALS: BP 115/83; PULSE 85; TEMP 97.8
[2022-01-16] MEDS ORDERED: FLAGYL500 MG PO (15:15)
== END 2022-01-16 17:20 ==
LOC: EUO 14:45
DX: J45.40 Moderate persistent asthma, uncomplicated (principal)
CPT/HCPCS: J2357

== ENCOUNTER → 2022-01-27 | Outpatient (CLI) | payer MEDICARE, OTHER ==
[~2022-01-27] MED LIST changes: +FLAGYL500 MG PO
== END ==
LOC: COL.RAD 09:29
DX: R10.2 Pelvic and perineal pain (principal); R10.9 Unspecified abdominal pain
CPT/HCPCS: A9575

== ENCOUNTER 2022-02-02 08:00 | Outpatient (RCR) | payer MEDICARE, OTHER ==
[2022-01-31 08:19] VITALS: BP 118/82; PULSE 81; TEMP 98
--- NOTE | 2022-01-31 10:10 | NUR ---
3 attempts to administer sandostatin were unsuccessful. Pharmacy was consulted due to inability to advance syringe plunger for IM injection. Attempted first with needle from LAR kit, then new 18 guage needle, and then medication was transferred to new syringe by pharmacist with new 18 guaze needle. Each time needle was primed just prior to attempted injection, with medication visable at tip of needle. Medication was also agitated to avoid seperating up until time of injection. After 3 attempts, pharmacist Myriam states medication will be reordered and we can have pt return when med arrives for administration of new kit. Discussed issue with administrations with pharmacists Myriam Buitrago, Mich Perales, and with Anat director as similar difficulties with administration have occured previously. Pt is understanding of plan for rescheduling of sandostatin administration. Xolair was given today as ordered.
[~2022-02-02] VITALS: Ht 170.2 cm; Wt 74.2 kg
[2022-02-02 08:39] VITALS: BP 97/62; PULSE 68; TEMP 98.2
== END 2022-02-02 10:00 | disposition home or self-care (01) ==
LOC: EUO 08:00
DX: J45.40 Moderate persistent asthma, uncomplicated (principal)
CPT/HCPCS: J2353; J2357

== ENCOUNTER 2022-02-14 14:37 | Outpatient (CLI) | payer MEDICARE, OTHER ==
[~2022-02-14] VITALS: Ht 170.2 cm; Wt 74.4 kg
[2022-02-14 15:05] VITALS: BP 100/69; PULSE 80; TEMP 98.7
== END 2022-02-14 16:04 | disposition home or self-care (01) ==
LOC: EUO 14:37
DX: J45.40 Moderate persistent asthma, uncomplicated (principal)
CPT/HCPCS: J2357

== ENCOUNTER 2022-02-28 14:47 | Outpatient (RCR) | payer MEDICARE, OTHER ==
[~2022-02-28] VITALS: Ht 170.2 cm; Wt 74.0 kg
[2022-02-28 15:20] VITALS: BP 105/82; PULSE 78; TEMP 98.3
== END 2022-02-28 15:45 | disposition home or self-care (01) ==
LOC: EUO 14:47
DX: E34.0 Carcinoid syndrome (principal); D89.42 Idiopathic mast cell activation syndrome
CPT/HCPCS: J2353; J2357

== ENCOUNTER 2022-03-14 14:46 | Outpatient (CLI) | payer MEDICARE, OTHER ==
[~2022-03-14] VITALS: Ht 170.2 cm; Wt 76.0 kg
[2022-03-14 15:06] VITALS: BP 109/80; PULSE 74; TEMP 98.2
== END 2022-03-14 16:30 | disposition home or self-care (01) ==
LOC: EUO 14:46
DX: J45.40 Moderate persistent asthma, uncomplicated (principal)
CPT/HCPCS: J2357

== ENCOUNTER 2022-04-27 14:47 | Outpatient (CLI) | payer MEDICARE, OTHER ==
[~2022-04-27] VITALS: Ht 170.2 cm; Wt 77.2 kg
[2022-04-27 15:15] VITALS: BP 117/77; PULSE 88; TEMP 97.7
== END 2022-04-27 15:30 | disposition home or self-care (01) ==
LOC: EUO 14:47
DX: E34.0 Carcinoid syndrome (principal); D89.42 Idiopathic mast cell activation syndrome; J45.40 Moderate persistent asthma, uncomplicated
CPT/HCPCS: J2353; J2357

== ENCOUNTER 2022-07-11 08:19 | Outpatient (CLI) | payer MEDICARE, OTHER ==
[~2022-07-11] VITALS: Ht 170.2 cm; Wt 74.6 kg
[~2022-07-11 08:19] MED LIST changes: +ADIPEX-P37.5 M2 PO
[2022-07-11 08:45] VITALS: BP 115/101; PULSE 104; TEMP 97.9
== END 2022-07-11 08:58 ==
LOC: EUO 08:19
DX: J45.40 Moderate persistent asthma, uncomplicated (principal)
CPT/HCPCS: J2357

== ENCOUNTER 2022-07-25 09:53 | Outpatient (CLI) | payer MEDICARE, OTHER ==
[~2022-07-25] VITALS: Ht 170.2 cm; Wt 74.3 kg
[2022-07-25 10:09] VITALS: BP 115/80; PULSE 85; TEMP 98.4
== END 2022-07-25 10:30 | disposition home or self-care (01) ==
LOC: EUO 09:53
DX: E34.0 Carcinoid syndrome (principal); D89.42 Idiopathic mast cell activation syndrome
CPT/HCPCS: J2353; J2357

== ENCOUNTER 2022-08-22 14:49 | Outpatient (RCR) | payer MEDICARE, OTHER ==
[~2022-08-22] VITALS: Ht 170.2 cm; Wt 74.7 kg
[2022-08-22 15:24] VITALS: BP 106/75; PULSE 73; TEMP 98.1
== END 2022-08-22 15:49 | disposition home or self-care (01) ==
LOC: EUO 14:49
DX: E34.0 Carcinoid syndrome (principal); D89.42 Idiopathic mast cell activation syndrome; J45.40 Moderate persistent asthma, uncomplicated
CPT/HCPCS: J2353; J2357

== ENCOUNTER 2022-09-19 14:45 | Outpatient (RCR) | payer MEDICARE, OTHER ==
[~2022-09-19] VITALS: Ht 170.2 cm; Wt 71.7 kg
[2022-09-19 14:35] VITALS: BP 121/62; PULSE 60
[2022-09-19 15:05] VITALS: BP 127/62; PULSE 62
[2022-09-19 15:24] VITALS: BP 103/77; PULSE 74; TEMP 97.8
--- NOTE | 2022-09-19 15:55 | NUR ---
Pt tolerated injections without issue. She exited dept with steady gait following administration and review of hx and meds.
== END 2022-09-19 15:55 | disposition home or self-care (01) ==
LOC: EUO 14:45
DX: J45.40 Moderate persistent asthma, uncomplicated (principal)
CPT/HCPCS: J2353; J2357

== ENCOUNTER 2022-10-17 14:47 | Outpatient (CLI) | payer MEDICARE, OTHER ==
[~2022-10-17] VITALS: Ht 170.2 cm; Wt 72.0 kg
[~2022-10-17 14:47] MED LIST changes: +ATARAX 25MG25 MG/TAB PO
[2022-10-17 15:00] VITALS: BP 107/74; PULSE 95; TEMP 98
== END 2022-10-17 16:00 | disposition home or self-care (01) ==
LOC: EUO 14:47
DX: J45.40 Moderate persistent asthma, uncomplicated (principal)
CPT/HCPCS: J2353; J2357

== ENCOUNTER 2022-11-14 14:47 | Outpatient (CLI) | payer MEDICARE, OTHER ==
[~2022-11-14] VITALS: Ht 170.2 cm; Wt 73.6 kg
[2022-11-14 15:08] VITALS: BP 107/77; PULSE 85; TEMP 98.5
[2022-11-14] MEDS ORDERED: PERIACTIN 4MG TA4 MG PO (15:22)
== END 2022-11-14 15:22 ==
LOC: EUO 14:47
DX: J45.40 Moderate persistent asthma, uncomplicated (principal)
CPT/HCPCS: J2353; J2357

== ENCOUNTER 2023-03-20 09:53 | Outpatient (CLI) | payer MEDICARE, OTHER ==
[~2023-03-20] VITALS: Ht 170.2 cm; Wt 84.5 kg
[~2023-03-20 09:53] MED LIST changes: +ALDACTONE 25MG25 M1 PO; +PERIACTIN 4MG TA4 MG PO; +TIROSINT125 MC1 PO
[2023-03-20 10:26] VITALS: BP 107/69; PULSE 77; TEMP 98.1
[2023-03-20] MEDS ORDERED: DOXYCYCLINE 10100 MG PO (10:45)
== END 2023-03-20 11:06 ==
LOC: EUO 09:53
DX: E34.0 Carcinoid syndrome (principal); D89.42 Idiopathic mast cell activation syndrome; J45.40 Moderate persistent asthma, uncomplicated
CPT/HCPCS: J2357

== ENCOUNTER 2023-04-03 14:47 | Outpatient (CLI) | payer MEDICARE, OTHER ==
[~2023-04-03] VITALS: Ht 170.2 cm; Wt 82.7 kg
[~2023-04-03 14:47] MED LIST changes: +DOXYCYCLINE 10100 MG PO
[2023-04-03 15:15] VITALS: BP 105/77; PULSE 90; TEMP 98.4
--- NOTE | 2023-04-03 15:22 | NUR ---
Pt tolerated injections without issue. SHe exits dept with steady gait.
[2023-04-03] MEDS ORDERED: ADIPEX-P37.5 MG PO (16:19)
== END 2023-04-03 15:22 | disposition home or self-care (01) ==
LOC: EUO 14:47
DX: E34.0 Carcinoid syndrome (principal); D89.42 Idiopathic mast cell activation syndrome; J45.40 Moderate persistent asthma, uncomplicated
CPT/HCPCS: J2353; J2357

== ENCOUNTER 2023-05-15 14:46 | Outpatient (CLI) | payer MEDICARE, OTHER ==
[~2023-05-15] VITALS: Ht 170.2 cm; Wt 80.5 kg
[~2023-05-15 14:46] MED LIST changes: +ADIPEX-P37.5 MG PO
[2023-05-15 15:01] VITALS: BP 120/81; PULSE 95; TEMP 98
== END 2023-05-15 15:15 | disposition home or self-care (01) ==
LOC: EUO 14:46
DX: J45.40 Moderate persistent asthma, uncomplicated (principal)
CPT/HCPCS: J2357

== ENCOUNTER 2023-05-29 14:56 | Outpatient (CLI) | payer MEDICARE, OTHER ==
[~2023-05-29] VITALS: Ht 170.2 cm; Wt 78.9 kg
[2023-05-29 15:02] VITALS: BP 121/77; PULSE 88; TEMP 97.3
== END 2023-05-29 15:33 | disposition home or self-care (01) ==
LOC: EUO 14:56
DX: J45.40 Moderate persistent asthma, uncomplicated (principal); E34.0 Carcinoid syndrome; D89.42 Idiopathic mast cell activation syndrome
CPT/HCPCS: J2353; J2357

== ENCOUNTER 2023-06-26 11:04 | Outpatient (CLI) | payer MEDICARE, OTHER ==
[~2023-06-26] VITALS: Ht 170.2 cm; Wt 81.3 kg
[2023-06-26 11:09] VITALS: BP 116/74; PULSE 96; TEMP 98.1
== END 2023-06-26 12:28 | disposition home or self-care (01) ==
LOC: EUO 11:04
DX: E34.0 Carcinoid syndrome (principal); D89.42 Idiopathic mast cell activation syndrome; J45.40 Moderate persistent asthma, uncomplicated
CPT/HCPCS: J2353; J2357

== ENCOUNTER 2023-07-10 14:52 | Outpatient (CLI) | payer MEDICARE, OTHER ==
[~2023-07-10] VITALS: Ht 170.2 cm; Wt 77.6 kg
[2023-07-10 15:15] VITALS: BP 115/80; PULSE 107; TEMP 98.3
[2023-07-10] MEDS ORDERED: Omalizumab 150 MG/1 ML SYRINGE SQ SCH (15:15)
== END 2023-07-10 15:50 | disposition home or self-care (01) ==
LOC: EUO 14:52
DX: J45.40 Moderate persistent asthma, uncomplicated (principal)
CPT/HCPCS: J2357

== ENCOUNTER 2023-07-24 14:01 | Outpatient (RCR) | payer MEDICARE, OTHER ==
[~2023-07-24] VITALS: Ht 170.2 cm; Wt 77.7 kg
[2023-07-24 14:14] VITALS: BP 108/80; PULSE 95; TEMP 97.9
[2023-07-24] MEDS ORDERED: OCTREOTIDE 20 MG IM ONE (14:15)
[2023-07-24] MEDS ORDERED: Omalizumab 150 MG/1 ML SYRINGE SQ ONE (14:15)
--- NOTE | 2023-07-24 14:44 | NUR ---
Pt tolerated injections without issue. Scheduled for 3 wks out for next sandostatin dose d/t shortage of 30mg dosing, and 20 mg sub. Pt exits dept with steady gait.
== END 2023-07-24 14:45 | disposition home or self-care (01) ==
LOC: EUO 14:01
DX: E34.0 Carcinoid syndrome (principal); D89.42 Idiopathic mast cell activation syndrome
CPT/HCPCS: J2353; J2357

== ENCOUNTER 2023-08-07 14:58 | Outpatient (CLI) | payer MEDICARE, OTHER ==
[~2023-08-07] VITALS: Ht 170.2 cm; Wt 76.6 kg
[2023-08-07] MEDS ORDERED: OCTREOTIDE 20 MG IM ONE (15:15)
[2023-08-07] MEDS ORDERED: Omalizumab 150 MG/1 ML SYRINGE SQ ONE (15:15)
[2023-08-07 15:38] VITALS: BP 118/67; PULSE 74; TEMP 98
--- NOTE | 2023-08-07 16:08 | NUR ---
pt tolerated injections well, vs remained within normal limits and pt ambulated independently to main lobby upon discharge. pt free from acute concerns and complaints.
== END 2023-08-07 16:09 | disposition home or self-care (01) ==
LOC: EUO 14:58
DX: E34.0 Carcinoid syndrome (principal); D89.42 Idiopathic mast cell activation syndrome; J45.40 Moderate persistent asthma, uncomplicated
CPT/HCPCS: J2353; J2357

== ENCOUNTER 2023-08-28 15:01 | Outpatient (CLI) | payer MEDICARE, OTHER ==
[~2023-08-28] VITALS: Ht 170.2 cm; Wt 77.2 kg
[2023-08-28 15:12] VITALS: BP 128/79; PULSE 120; TEMP 98.5
[2023-08-28] MEDS ORDERED: PEPCID AC 10MG10 MG PO (15:24)
[2023-08-28] MEDS ORDERED: OCTREOTIDE 20 MG IM ONE (15:30)
[2023-08-28] MEDS ORDERED: Omalizumab 150 MG/1 ML SYRINGE SQ ONE (15:30)
--- NOTE | 2023-08-28 15:45 | NUR ---
Sandostatin initially mixed by pharmacy does not appear to have disolved properly. Medication will not remain in suspension. This is discussed with pharmacist Myriam. She states another dose will be used due to concerns. Pt is agreeable with this, and requests that next dose be left at room temp for at least 1 hr prior to mixing. She is resting comfortably in recliner. Warm blanket provided. Call light in reach.
--- NOTE | 2023-08-28 16:57 | NUR ---
pt tolerated sandostatin injection well and vs remained within normal limits pt amubulated independently to main lobby following injection.
== END 2023-08-28 16:58 | disposition home or self-care (01) ==
LOC: EUO 15:01
DX: J45.40 Moderate persistent asthma, uncomplicated (principal)
CPT/HCPCS: J2353; J2357

== ENCOUNTER → 2023-10-12 | Outpatient (CLI) | payer MEDICARE, OTHER ==
[~2023-10-12] MED LIST changes: +CROMOLYN SODIUM IH; +LEVAQUIN 5500 MG/TA1 PO; +PEPCID AC 10MG10 MG PO; +XYZAL5 MG PO
== END ==
LOC: COL.VAS 12:09
DX: R00.0 Tachycardia, unspecified (principal); R00.2 Palpitations

== ENCOUNTER 2023-12-18 14:28 | Outpatient (RCR) | payer MEDICARE, OTHER ==
[~2023-12-18] VITALS: Ht 170.2 cm; Wt 72.5 kg
[~2023-12-18 14:28] MED LIST changes: +ISTALOL 2.5 ML2.5 ML OU; -SANDOSTATIN LAR30 M1 IM; +SANDOSTATIN20 MG/KIT IM; +SYNTHROID0.112 MG/T PO; -TIROSINT125 MC1 PO
[2023-12-18 14:42] VITALS: BP 99/63; PULSE 66; TEMP 98.1
[2023-12-18] MEDS ORDERED: Omalizumab 150 MG/1 ML SYRINGE SQ ONE (14:45)
[2023-12-18] MEDS ORDERED: OCTREOTIDE 20 MG IM ONE (14:45)
--- NOTE | 2023-12-18 15:10 | NUR ---
Pt tolerated injections without issue. She exits dept with steady gait. Free of complaints at discharge.
[2023-12-18] MEDS ORDERED: NALTREX1.5 MG PO (15:30)
== END 2023-12-18 15:10 | disposition home or self-care (01) ==
LOC: EUO 14:28
DX: J45.40 Moderate persistent asthma, uncomplicated (principal); E34.0 Carcinoid syndrome; D89.42 Idiopathic mast cell activation syndrome
CPT/HCPCS: J2353; J2357

== ENCOUNTER 2024-01-01 15:11 | Outpatient (RCR) | payer MEDICARE, OTHER ==
[~2024-01-01] VITALS: Ht 170.2 cm; Wt 71.4 kg
[~2024-01-01 15:11] MED LIST changes: +NALTREX1.5 MG PO
[2024-01-01] MEDS ORDERED: Omalizumab 150 MG/1 ML SYRINGE SQ ONE (15:15)
[2024-01-01] MEDS ORDERED: OCTREOTIDE 20 MG IM ONE (15:15)
[2024-01-01 15:21] VITALS: BP 97/67; PULSE 69; TEMP 98
== END 2024-01-01 15:47 | disposition home or self-care (01) ==
LOC: EUO 15:11
DX: J45.40 Moderate persistent asthma, uncomplicated (principal); E34.0 Carcinoid syndrome; D89.42 Idiopathic mast cell activation syndrome
CPT/HCPCS: J2353; J2357

== ENCOUNTER 2024-03-11 14:53 | Outpatient (CLI) | payer MEDICARE, OTHER ==
[~2024-03-11] VITALS: Ht 170.2 cm; Wt 72.3 kg
[~2024-03-11 14:53] MED LIST changes: +D3-5050000 IU PO; +DHEA 10 MG TAB1 EACH PO; +LOTREXONE1.5 MG PO; +MOTRIN 400400 MG/TAB PO; +NATURE'S BLE1000 MCG PO; -SYNTHROID0.112 MG/T PO; +VITAMIN D31000 I1 PO; +[UNRECOGNIZED DRUG - OTHER] TP
[2024-03-11 15:01] VITALS: BP 95/79; PULSE 76; TEMP 98.5
[2024-03-11] MEDS ORDERED: CYTOMEL 5MC5 MCG/TAB PO (15:07)
[2024-03-11] MEDS ORDERED: Omalizumab 150 MG/1 ML SYRINGE SQ ONE (15:15)
[2024-03-11] MEDS ORDERED: OCTREOTIDE 20 MG IM ONE (15:15)
== END 2024-03-11 15:21 | disposition home or self-care (01) ==
LOC: EUO 14:53
DX: J45.40 Moderate persistent asthma, uncomplicated (principal); D89.42 Idiopathic mast cell activation syndrome; E34.0 Carcinoid syndrome
CPT/HCPCS: J2353; J2357

== ENCOUNTER 2024-04-08 15:01 | Outpatient (CLI) | payer MEDICARE, OTHER ==
[~2024-04-08] VITALS: Ht 170.2 cm; Wt 72.0 kg
[~2024-04-08 15:01] MED LIST changes: +CYTOMEL 5MC5 MCG/TAB PO; +OCTREOTIDE 20 MG IM ONE
[2024-04-08 15:17] VITALS: BP 107/75; PULSE 64; TEMP 98.1
[2024-04-08] MEDS ORDERED: Omalizumab 150 MG/1 ML SYRINGE SQ ONE (15:30)
--- NOTE | 2024-04-08 15:47 | NUR ---
Pt tolerated meds without issue. She exits dept with steady gait. Free of complaints.
[2024-04-08] MEDS ORDERED: QUERCETIN500 M1 PO (15:54)
== END 2024-04-08 15:47 | disposition home or self-care (01) ==
LOC: EUO 15:01
DX: J45.40 Moderate persistent asthma, uncomplicated (principal); D89.42 Idiopathic mast cell activation syndrome; E34.00 Carcinoid syndrome, unspecified
CPT/HCPCS: J2353; J2357

== ENCOUNTER 2024-04-22 15:10 | Outpatient (CLI) | payer MEDICARE, OTHER ==
[2024-04-22 15:10] VITALS: BP 109/65; PULSE 71; TEMP 98
[~2024-04-22 15:10] MED LIST changes: +Omalizumab 150 MG/1 ML SYRINGE SQ ONE; +QUERCETIN500 M1 PO
--- NOTE | 2024-04-22 15:34 | NUR ---
Pt tolerated injections without issue. She exits dept with steady gait. Free of complaints at time of departure.
== END 2024-04-22 15:38 | disposition home or self-care (01) ==
LOC: EUO 15:10
DX: J45.40 Moderate persistent asthma, uncomplicated (principal)
CPT/HCPCS: J2353; J2357